=== PATIENT | male | born 1940 | race Caucasian/White ===

== ENCOUNTER → 2019-02-24 08:58 | Outpatient (CLI) | payer MEDICARE, SELFPAY ==
--- NOTE | 2019-02-24 10:10 | DI.CT.S_ITS ---
PROCEDURE: CT ABDOMEN PELVIS W CON INDICATIONS: RIGHT LOWER QUADRANT PAIN TECHNIQUE: After the administration of oral and intravenous contrast, 5 mm thick sections acquired from the diaphragms to the symphysis. 5 mm thick coronal and sagittal reformats were performed. For radiation dose reduction, the following was used: automated exposure control, adjustment of mA and/or kV according to patient size. COMPARISON: None. FINDINGS: Image quality: Excellent. ABDOMEN: Lung bases: Lung bases are clear. Heart size is normal. Solid organs: There is diffuse hypoattenuation consistent with steatosis. There are multiple oval hypoattenuating foci within the liver with the largest measuring up to 1.5 cm in the posterior inferior right hepatic lobe. The larger hypoattenuating foci demonstrate attenuation characteristics consistent with hepatic cysts, while the smaller of which are too small to fully characterize on this exam (and may represent hepatic cysts or hemangiomas); no convincing enhancing intrahepatic mass is identified. Gallbladder is unremarkable. Biliary system is non-dilated. Pancreas enhances normally. Spleen is normal in size and enhancement. No adrenal nodules. Multiple subcentimeter hypoattenuating foci within the kidneys are too small to fully characterize on this exam and may resent hepatic cysts. Punctate nonobstructing nephroliths identified within the right kidney. No hydronephrosis bilaterally. There is mild bilateral perinephric fat stranding. Peritoneum and bowel: Stomach, small bowel, and colon loops are normal in caliber and wall thickness. No free fluid or air. Normal appendix best seen on axial image 67 of series 4. There is sigmoid colon diverticulosis without evidence of acute diverticulitis. Nodes and vessels: No retroperitoneal or mesenteric adenopathy. Aorta and inferior vena cava within normal limits in diameter. There is moderate calcified and noncalcified plaque of the abdominal aorta and branch vessels with up to 50% narrowing/stenosis of intraluminal diameter by plaque Miscellaneous: There is a 1.0 cm fat-containing umbilical hernia. PELVIS: Genitourinary: The prostate is markedly enlarged with internal calcifications. There is diffuse bladder wall thickening with trabeculation. There are bilateral posterior bladder diverticula, with the largest measuring up 1.5 cm along the posterolateral right bladder. There is heterogeneous enhancement of the prostate. There is a partially imaged right hydrocele. Miscellaneous: No inguinal hernias or adenopathy. Bones: No suspicious bony lesions. No vertebral body compression fractures. There are mild multilevel degenerative changes of the lumbar spine. IMPRESSION: 1. Punctate nonobstructing nephroliths within the right kidney. No hydronephrosis bilaterally. 2. Moderate calcified and noncalcified plaque of the abdominal aorta resulting in up to 50% intraluminal narrowing/stenosis. 3. Irregular bladder wall with bilateral bladder diverticula and an enlarged heterogeneously enhancing prostate. Findings are suggestive of chronic bladder outlet obstruction. Correlation with urinalysis suggested. Consider correlation with PSA level if the patient is at risk for prostatic malignancy. 4. Additional findings as described above including a normal appendix, sigmoid colon diverticulosis without evidence of acute diverticulitis, and diffuse hepatic steatosis. Dictated by: Brian Lopez M.D. on 02/24/2019 at 13:53 Approved by: Brian Lopez M.D. on 02/24/2019 at 14:20
== END ==
PROVIDERS: PCP Internal Medicine; Visit Provider Student in an Organized Health Care Education/Training Program
DX: R10.31 Right lower quadrant pain (principal); N20.0 Calculus of kidney; I70.0 Atherosclerosis of aorta; N32.3 Diverticulum of bladder; N40.0 Benign prostatic hyperplasia without lower urinary tract symptoms; K57.30 Diverticulosis of large intestine without perforation or abscess without bleeding; K76.0 Fatty (change of) liver, not elsewhere classified
CPT/HCPCS: 74177; Q9967